=== PATIENT | female | born 1940 | race Caucasian/White ===

== ENCOUNTER 2019-01-16 21:49 | Outpatient (REF) | payer MEDICARE, SELFPAY ==
[2019-01-16 21:54] LABS: HCT 43.8 % (36.0-46.0); HGB 14.4 g/dL (12.0-15.5); Mean Corp. HGB Concentration 32.9 g/dL (32.0-36.0); Mean Corpuscular Hemoglobin 32.4 pg (27.0-33.0); Mean Corpuscular Volume 98.4 fL (80-95); Platelet Count 219 x1000/uL (130-400); RBC 4.45 m/cumm (4.00-5.20); RBC Distribution Width 12.8 % (11.7-14.6)
[2019-01-17 12:30] LABS: ALT 17 U/L (14-59); Anion Gap 8.3 mmol/L (3-11); BUN 24 mg/dL (7-18); CO2 25.7 mmol/L (21.0-32.0); CREATININE 1.19 mg/dL (0.55-1.02); Calcium 8.9 mg/dL (8.5-10.1); Chloride 105 mmol/L (98-107); Glucose 100 mg/dL (70-100); LDL CHOLESTEROL 111 mg/dL (<100); Potassium 4.5 mmol/L (3.5-5.1); Sodium 139 mmol/L (136-145)
== END 2019-01-16 22:09 ==
LOC: NCHCN 21:49
PROVIDERS: PCP Internal Medicine; Visit Provider Internal Medicine
DX: I48.0 Paroxysmal atrial fibrillation (principal); I10 Essential (primary) hypertension; Z98.61 Coronary angioplasty status
CPT/HCPCS: 80048; 83721; 85027; 84460

== ENCOUNTER 2020-01-23 14:42 | Outpatient (REF) | payer MEDICARE, SELFPAY ==
[2020-01-23 19:51] LABS: HGB 14.1 g/dL (11.2-15.7); MCH 32.2 pg (27.0-33.0); MCV 100.5 fL (80-95); MPV 11.1 fL (8.0-11.0); Platelet Count 182 10^3/uL (130-400); RBC 4.38 10^6/uL (3.93-5.22); RDW 12.5 % (11.7-14.6); RDW-SD 46.7 fL; WBC 6.16 10^3/uL (4.4-10.8)
[2020-01-23 20:30] LABS: ALT 19 U/L (14-59); Albumin 3.9 g/dL (3.4-5.0); Anion Gap 7.5 mmol/L (3-11); BUN 27 mg/dL (7-18); CO2 26.5 mmol/L (21.0-32.0); CREATININE 1.27 mg/dL (0.55-1.02); Calcium 9.2 mg/dL (8.5-10.1); Chloride 101 mmol/L (98-107); Glucose 104 mg/dL (74-106); LDL CHOLESTEROL 114 mg/dL (<100); Potassium 4.9 mmol/L (3.5-5.1); Sodium 135 mmol/L (136-145); TSH 1.13 uIU/mL (0.36-3.74)
[2020-01-23 21:00] LABS: Creatine Kinase 118 U/L (26-192); NT-proBNP 1450 pg/mL (<300); PHOSPHORUS 3.8 mg/dL (2.6-4.7)
== END 2020-01-23 15:02 ==
LOC: NCHCN 14:42
PROVIDERS: PCP Internal Medicine; Visit Provider Internal Medicine
DX: I69.959 Hemiplegia and hemiparesis following unspecified cerebrovascular disease affecting unspecified side (principal); Z79.01 Long term (current) use of anticoagulants; I10 Essential (primary) hypertension; I25.10 Atherosclerotic heart disease of native coronary artery without angina pectoris; Z98.61 Coronary angioplasty status; E04.2 Nontoxic multinodular goiter; I50.9 Heart failure, unspecified
CPT/HCPCS: 80069; 82550; 83721; 85027; 83880; 84443; 84460

== ENCOUNTER 2021-09-02 19:54 | Outpatient (REF) | payer MEDICARE, SELFPAY ==
[2021-09-02 19:29] LABS: HCT 43.2 % (36.0-46.0); HGB 13.7 g/dL (11.2-15.7); MCH 32.7 pg (27.0-33.0); MCHC 31.7 % (32.0-36.0); MCV 103.1 fL (80-95); MPV 10.9 fL (8.0-11.0); Platelet Count 164 10^3/uL (130-400); RBC 4.19 10^6/uL (3.93-5.22); RDW 12.2 % (11.7-14.6); WBC 5.38 10^3/uL (4.4-10.8)
--- OUTSIDE RECORDS SUMMARY | 2021-09-02 19:58 | XMS_ITS ---
:1940 Author Care Team Providers Name Role Phone CLIVE MOLINA MD Primary Care Provider [phone] PERRY ERICKSON MD Color Straining Bag Washer [phone] Allergies Code Code System Name Reaction Severity Status Onset 703 RxNorm Amiodarone ? ? Active ? 2551 RxNorm Ciprofloxacin Hives ? Active ? Notes: No seafood allergy. No co ntrast allergy. Medications Name Status Start Date Stop Date ? ? acetaminophen 300 mg-codeine 30 mg Completed ? 10/14/2019 tablet amoxicillin 500 mg capsule Completed ? 10/13 aspirin 81 mg tablet,delayed release Active ? Not available Take 1 tablet every day by oral route in the morning. bupropion HCl SR 150 mg tablet,12 hr Active ? Not available sustained-release carvedilol 12.5 mg tablet Active ? Not av ailable chlorhexidine gluconate 0.12 % mouthwash Completed ? 08/03/2020 TAKE 15ML BY MOUTH TWO TIMES A DAY FOR 7 DAYS Co Q-10 Active ? Not available Take 1 tablet in the am fluticasone propionate 50 mcg/actuation Active ? Not available nasal spray,suspension fosinopril 40 mg tablet Active ? Not avai lable hydrocodone 5 mg-acetaminophen 325 mg tablet Active ? Not available TAKE ONE TABLET BY MOUTH EVERY 6 HOURS NEEDED ketorolac 0.5 % eye drops Completed ? 2019 neomycin 1.75 mg-polymyxin 10,000 Completed ? 10/14/2019 unit-gramicidin 0.025mg/mL eye drops Nitrostat 0.4 mg sublingual tablet Active ? Not available Place 1 tablet by sublingual route as needed. prednisolone acetate 1 % eye Completed ? 05/2019 drops,suspension rosuvastatin 40 mg tablet Active ? Not av ailable spironolactone 50 mg tablet Active ? Not available warfarin 2.5 mg tablet Completed ? 0 Xarelto 15 mg tablet Active ? Not availab le Problems Name Status Onset Date Source ? Hyperlipidemia Active 07/22/2019 ? Coronary Arteriosclerosis Active 07/22/2019 ? Mitral Valve Regurgitation Active 07/22/2019 ? Atrial Fibrillation Active 07/22/2019 ? Tachycardia-bradycardia Active 07/22/2019 ? Cerebrovascular Accident Active 07/22/2019 ? Diverticulitis Active 07/22/2019 ? Cardiac Pacemaker in Situ Active 07/23/2019 ? Dysthymia Active ? History Obstructive Sleep Apnea Syndrome Active ? History Hypertensive Disorder Active ? History Myocardial Infarction Active ? History Procedures Date Name Performed by ? 05/15/2015 Cardiac Pacemaker Procedure Information not available Notes: Replaced prior (ol rigoberto) pacemaker at [facility] [place], pt sched. for pacemaker check-up at [facility] [place] on 09/18/18. 05/15/2008 Cholecystectomy Information not avai lable 05/15/2008 Rhinoplasty Information not avai lable 05/15/2005 Colonoscopy Information not avai lable 05/15/1988 Total Hysterectomy Information not avai lable 05/15/1967 Insertion of Bilateral Breast Informatio n not available Prostheses ? Cardiac Catheterization Information not available Notes: 2003 @ [facility] [place] 05/18/2020 US, Echocardiogram, Transthoracic, [facility] Radiology (Internal) Complete [address], [place] [id number] (Work Place) Results Lab Results Date Name Specimen Result Interpretation Description Value Range Status Address ? 07/31/2020 CBC W/ Auto BLD ? Wbc 7.9 5.0-10.0 Final [place] Diff 10*3/uL 10*3/uL [facility] (Internal) : [address] ? ? BLD ? Rbc 4.32 4.10-5.30 Final [place] 10*6/uL 10*6/uL [facility] (Internal) : [address] ? ? BLD ? Hgb 14.2 12.0-16.0 Final [place] g/dL g/dL [facility] (Internal) : [address] ? ? BLD ? Hct 45.0 % 37.0-47.0 Final [place] % [facility] (Internal) : [address] ? ? BLD High Mcv 104.2 fL 80.0-96.0 Final [facility] (Internal) : [address], [place] ? ? BLD High Mch 32.9 pg 26.0-32.0 Final [place] pg [facility] (Internal) : [address] ? ? BLD ? Mchc 31.6 31.0-35.0 Final [place] g/dL g/dL [facility] (Internal) : [address] ? ? BLD ? Rdw 12.7 % 11.5-14.5 Final [facility] L ab (Internal) : [address] ? ? BLD ? Plt 178 130-450 Final [place] 10*3/uL 10*3/uL [facility] (Internal) : [address] ? ? BLD ? Anc 5.46 ? Final [place] 10*3/uL [facility] (Internal) : [address] ? ? BLD ? Nlr 3.16 0.00-3.20 Final [facility] L ab (Internal) : [address] ? ? BLD ? Neutro 69.2 % 40.0-75.0 Final [facility] L ab (Internal) : [address] ? ? BLD ? Lymph 22.0 % 20.0-50.0 Final [facility] L ab (Internal) : [address] ? ? BLD ? [place] 6.2 % 2.0-10.0 Final [facility] L ab (Internal) : [address] ? ? BLD ? Eos 1.4 % 1.0-6.0 % Final [facility] L ab (Internal) : [address] ? ? BLD ? Baso 0.8 % 0.0-1.0 % Final [facility] L ab (Internal) : [address] ? ? BLD ? Ig 0.4 % 0.0-0.9 % Final [facility] L [facility] (Internal) : [address] t 07/31/2020 BMP, Serum or S High g/r 110 74-106 Final [place] Plasma mg/dL mg/dL [facility] L [facility] (Internal) : [address] ? ? S High Bun 22 mg/dL 7-17 Final [place] mg/dL [facility] L ab (Internal) : [address] t ? ? S High Crea 1.20 0.52-1.04 Final [place] mg/dL mg/dL [facility] L ab (Internal) : [address] t ? ? S ? Ca 9.5 8.4-10.2 Final [place] mg/dL mg/dL [facility] (Internal) : [address] t ? ? S ? Na 139 137-145 Final [place] mmol/L mmol/L [facility] L ab (Internal) : [address] t ? ? S ? K 4.9 3.5-5.1 Final [place] mmol/L mmol/L [facility] L ab (Internal) : [address] t ? ? S ? Cl 103 98-107 Final [place] mmol/L mmol/L [facility] L [facility] (Internal) : [address] t ? ? S ? Tco2 25.0 22.0-30.0 Final [place] mmol/L mmol/L [facility] L [facility] (Internal) : [address] 07/31/2020 RBC BLD ? Macro small ? Final [place] Morphology, Count ry Blood Hospital L ab (Internal) : [address] 07/31/2020 BNP (B-type S High Nt-probnp 1480 0-450 Sherron l [place] Natriuretic pg/mL pg/mL Count ry Peptide), Hospita l Lab Prohormone (Inter nal): N-terminal, [address], [place] Immunoassay, Blood 07/31/2020 TSH, Serum or S ? Tsh 1.23 0.47-4.68 Fin al [place] Plasma u[IU]/mL u[IU]/mL Countr Hospital L ab (Internal) : [address] 10/17/2019 EKG Done by ? No ? ? ? N orth Lab observation Count ry recorded. Hospita l Lab (Internal) : [address] 09/18/2017 Venipuncture BLD ? Venpn* ? ? Final [facility] L ab (Internal) : [address] 09/18/2017 Prothrombin BLD High Pt 35.7 S 9.1-11.7 Final [facility] L ab (Internal) : [address] t ? ? BLD ? Inr 3.5 ? Final [facility] ab (Internal) : [address] t 08/16/2017 Venipuncture BLD ? Venpn* ? ? Final [facility] L ab (Internal) : [address] t 08/16/2017 Prothrombin BLD High Pt 26.6 S 9.1-11.7 Final [facility] L ab (Internal) : [address] t ? ? BLD ? Inr 2.6 ? Final [facility] ab (Internal) : [address] t 07/18/2017 Venipuncture BLD ? Venpn* ? ? Final [facility] L ab (Internal) : [address] t 07/18/2017 Prothrombin BLD High Pt 26.7 S 9.1-11.7 Final [facility] L ab (Internal) : [address] t ? ? BLD ? Inr 2.6 ? Final [facility] L ab (Internal) : [address] t 07/03/2017 Venipuncture BLD ? Venpn* ? ? Final [facility] ab (Internal) : [address] t 07/03/2017 Prothrombin BLD High Pt 18.9 S 9.1-11.7 Final [facility] L ab (Internal) : [address] t ? ? BLD ? Inr 1.8 ? Final [facility] L ab (Internal) : [address] t 06/26/2017 Venipuncture BLD ? Venpn* ? ? Final [facility] L ab (Internal) : [address] t 06/26/2017 Prothrombin BLD High Pt 19.9 S 9.1-11.7 Final [facility] L ab (Internal) : [address] t ? ? BLD ? Inr 1.9 ? Final [facility] ab (Internal) : [address] t 06/19/2017 Venipuncture BLD ? Venpn* ? ? Final [facility] L ab (Internal) : [address] t 06/19/2017 Prothrombin BLD High Pt 43.9 S 9.1-11.7 Final [facility] L ab (Internal) : [address] t ? ? BLD CRITICAL Inr 4.3 ? Final [facility]Internal[facility] [address] [facility] 05/24/2017 Venipuncture BLD ? Venpn* ? ? Final [facility] ab (Internal) : [address] 05/24/2017 Prothrombin BLD High Pt 25.6 S 9.1-11.7 Final [facility] L ab (Internal) : [address] t ? ? BLD ? Inr 2.5 ? Final [facility] ab (Internal) : [address] t 04/19/2017 Venipuncture BLD ? Venpn* ? ? Final [facility] L ab (Internal) : [address] t 04/19/2017 Prothrombin BLD High Pt 27.6 S 9.1-11.7 Final [facility] L ab (Internal) : [address] t ? ? BLD ? Inr 2.7 ? Final [facility] ab (Internal) : [address] t 03/27/2017 Venipuncture BLD ? Venpn* ? ? Final [facility] L ab (Internal) : [address] t 03/27/2017 Prothrombin BLD High Pt 25.1 S 9.1-11.7 Final [facility] L ab (Internal) : [address] t ? ? BLD ? Inr 2.5 ? Final [facility] ab (Internal) : [address] t 03/13/2017 Venipuncture BLD ? Venpn* ? ? Final [facility] ab (Internal) : [address] t 03/13/2017 Prothrombin BLD High Pt 16.7 S 9.1-11.7 Final [facility] ab (Internal) : [address] t ? ? BLD ? Inr 1.6 ? Final [facility] ab (Internal) : [address] [facility] 03/10/2017 Venipuncture BLD ? Venpn* ? ? Final [facility] L ab (Internal) : [address] [facility] t 03/10/2017 Prothrombin BLD High Pt 35.1 S 9.1-11.7 Final [facility] L ab (Internal) : [address] t ? ? BLD ? Inr 3.5 ? Final [facility] L ab (Internal) : [address], [facility] t 02/08/2017 Venipuncture BLD ? Venpn* ? ? Final [facility] L ab (Internal) : [address] [facility] t 02/08/2017 Prothrombin BLD High Pt 23.8 S 9.1-11.7 Final [facility] L ab (Internal) : [address] t ? ? BLD ? Inr 2.3 ? Final [facility] (Internal) : [address] [facility] 01/03/2017 Venipuncture BLD ? Venpn* ? ? Final [facility] L ab (Internal) : [address] [facility] t 01/03/2017 Prothrombin BLD High Pt 27.8 S 9.1-11.7 Final [facility] L ab (Internal) : [address] t ? ? BLD ? Inr 2.7 ? Final [facility] L ab (Internal) : [address] t 11/18/2016 Venipuncture BLD ? Venpn* ? ? Final [facility] L ab (Internal) : [address] t 11/18/2016 Prothrombin BLD High Pt 16.7 S 9.1-11.7 Final [facility] L ab (Internal) : [address] t ? ? BLD ? Inr 1.6 ? Final [facility]Internal[facility] [address] [facility] Venipuncture BLD ? Venpn* ? ? Final [facility] L ab (Internal) : [address] t 10/12/2016 Prothrombin BLD High Pt 25.2 S 9.1-11.7 Final [facility] L ab (Internal) : [address] ? ? BLD ? Inr 2.5 ? Final [facility] L ab (Internal) : [address] t 07/15/2016 Venipuncture BLD ? Venpn* ? ? Final [facility] L ab (Internal) : [address] 07/15/2016 Prothrombin BLD High Pt 19.9 S 9.1-11.7 Final [facility] L ab (Internal) : [address], [place] ? ? BLD ? Inr 1.9 ? Final [facility] L ab (Internal) : [address] 07/05/2016 Venipuncture BLD ? Venpn* ? ? Final [facility] ab (Internal) : [address], [place] t 07/05/2016 Prothrombin BLD High Pt 18.0 S 9.1-11.7 Final [facility] ab (Internal) : [address] ? ? BLD ? Inr 1.8 ? Final [facility] ab (Internal) : [address] Past Encounters 02/03/2021 Hypertensive Disorder Perry Erickson MD: [address] [place] [address], Ph. 08/03/2020 Perry Erickson MD: [address] [place] [address], Ph. 05/18/2020 Fatigue Perry Erickson MD: [address] [place] [address], Ph. Social History Tobacco Smoking Status Former Smoker Notes: 1 PPD q uit 1985 Vaccine List Vaccine Type influenza, seasonal, injectable, preserv ative free 04/30/2009?0.5 mL 02/15/2010?0.5 mL 02/26/2013?0.5 mL 02/05/2019?0.5 mL Plan of Care Reminders Provider Appointments None ? ? recorded. Lab None ? ? recorded. Referral None ? ? recorded. Procedures None ? ? recorded. Surgeries None ? ? recorded. Imaging None ? ? recorded. Vitals 02/03/2021 11:30AM Follow Up 30 Weight Blood Pressure 75 kg 100/68 mm[Hg] 08/03/2020 02:15PM Follow Up 30 Weight Blood Pressure 76.05 kg 124/67 mm[Hg] 05/18/2020 01:00PM Follow Up 30 Weight Blood Pressure 71.05 kg 100/56 mm[Hg] 04/03/2012 Blood Pressure 120/80 mm[Hg] 04/03/2012 Height Weight 162.56 cm 88.45 kg
[2021-09-02 20:07] LABS: Anion Gap 6.4 mmol/L (3-11); BUN 20 mg/dL (7-18); CO2 29.6 mmol/L (21.0-32.0); CREATININE 1.2 mg/dL (0.55-1.02); Calcium 9.3 mg/dL (8.5-10.1); Chloride 103 mmol/L (98-107); Estimated GFR 43.34 (mL/min/1.73m2); Glucose 104 mg/dL (74-106); NT-proBNP 1568 pg/mL (<300); Potassium 4.6 mmol/L (3.5-5.1); Sodium 139 mmol/L (136-145)
[2021-09-02 21:20] LABS: TSH 1.33 uIU/mL (0.36-3.74)
== END 2021-09-02 19:55 | disposition home or self-care (01) ==
LOC: NCHCN 19:54
PROVIDERS: PCP Internal Medicine; Visit Provider Internal Medicine
DX: R06.09 Other forms of dyspnea (principal)
CPT/HCPCS: 80048; 85027; 83880; 84443

== ENCOUNTER 2022-07-20 18:06 | Outpatient (REF) | payer MEDICARE, SELFPAY ==
[2022-07-20 20:01] LABS: HCT 40.5 % (36.0-46.0); HGB 13.5 g/dL (11.2-15.7); MCH 33.7 pg (27.0-33.0); MCHC 33.3 % (32.0-36.0); MCV 101 fL (80-95); MPV 11.1 fL (8.0-11.0); Platelet Count 152 10^3/uL (130-400); RBC 4.01 10^6/uL (3.93-5.22); RDW 12.3 % (11.7-14.6); WBC 5.99 10^3/uL (4.4-10.8)
[2022-07-20 20:24] LABS: Anion Gap 7.8 mmol/L (3-11); BUN 21 mg/dL (7-18); C-Reactive Protein 0.09 mg/dL (0.0-0.3); CO2 28.2 mmol/L (21.0-32.0); CREATININE 1.3 mg/dL (0.55-1.02); Calcium 10.4 mg/dL (8.5-10.1); Chloride 105 mmol/L (98-107); Creatine Kinase 84 U/L (26-192); Estimated GFR 41.57 (mL/min/1.73m2); Glucose 103 mg/dL (74-106); NT-proBNP 1207 pg/mL (<300); Potassium 4.8 mmol/L (3.5-5.1); Sodium 141 mmol/L (136-145); TSH 0.94 uIU/mL (0.36-3.74)
[2022-07-20 21:12] LABS: Calculated LDL 94 mg/dL (<100); Cholesterol 189 mg/dL (<200); HDL Cholesterol 83 mg/dL (40-60); Triglyceride 62 mg/dL (<150); Vitamin B12 335 pg/mL (193-986)
== END 2022-07-20 18:07 | disposition home or self-care (01) ==
LOC: NCHCN 18:06
PROVIDERS: PCP Internal Medicine; Visit Provider Internal Medicine
DX: I10 Essential (primary) hypertension (principal); E78.5 Hyperlipidemia, unspecified; R53.83 Other fatigue; M81.0 Age-related osteoporosis without current pathological fracture; M60.9 Myositis, unspecified
CPT/HCPCS: 80048; 80061; 82550; 85027; 82607; 83880; 84443; 86140

== ENCOUNTER 2022-11-17 15:47 | Outpatient (REF) | payer MEDICARE, SELFPAY ==
[2022-11-17 20:08] LABS: Abs Immature Grans 0.01 10^3/uL (0.0-0.06); Absolute Basophil Count 0.05 10^3/uL (0.0-0.2); Absolute Lymphocyte Count 1.78 10^3/uL (1.2-3.4); Absolute Monocyte Count 0.38 10^3/uL (0.1-0.8); Absolute Neutrophil Count 3.25 10^3/uL (1.2-6.7); Basophils % 0.9; Eosinophils % 1.8; HGB 13.9 g/dL (11.2-15.7); Immature Grans % 0.2; MCH 33.4 pg (27.0-33.0); MCHC 33.1 % (32.0-36.0); MCV 101 fL (80-95); MPV 11.5 fL (8.0-11.0); Monocytes % 6.8; Neutrophils % 58.3; Platelet Count 147 10^3/uL (130-400); RBC 4.16 10^6/uL (3.93-5.22); RDW 12.4 % (11.7-14.6); RDW-SD 46.6 fL; WBC 5.57 10^3/uL (4.4-10.8)
[2022-11-17 20:23] LABS: Albumin 3.9 g/dL (3.4-5.0); Anion Gap 7.1 mmol/L (3-11); BUN 28 mg/dL (7-18); CO2 28.9 mmol/L (21.0-32.0); CREATININE 1.8 mg/dL (0.55-1.02); Calcium 9.8 mg/dL (8.5-10.1); Chloride 104 mmol/L (98-107); Estimated GFR 28.13 (mL/min/1.73m2); Glucose 112 mg/dL (74-106); PHOSPHORUS 3.8 mg/dL (2.6-4.7); Potassium 5.9 mmol/L (3.5-5.1); Sodium 140 mmol/L (136-145)
== END 2022-11-17 15:48 | disposition home or self-care (01) ==
LOC: NCHCN 15:47
PROVIDERS: PCP Internal Medicine; Visit Provider Internal Medicine
DX: Z79.01 Long term (current) use of anticoagulants (principal); I50.9 Heart failure, unspecified
CPT/HCPCS: 80069; 85025

== ENCOUNTER → 2023-01-11 10:46 | Outpatient (BNVA) | payer MEDICARE, SELFPAY | PROVIDERS: PCP Internal Medicine; Referring Provider Internal Medicine; Visit Provider Psychiatry & Neurology Neurology | DX: F44.4 Conversion disorder with motor symptom or deficit (principal); I10 Essential (primary) hypertension; J44.9 Chronic obstructive pulmonary disease, unspecified | CPT/HCPCS: 99205 ==

== ENCOUNTER → 2023-03-13 10:10 | Outpatient (BNVA) | payer MEDICARE, SELFPAY | PROVIDERS: PCP Internal Medicine; Referring Provider Internal Medicine; Visit Provider Psychiatry & Neurology Neurology | DX: I10 Essential (primary) hypertension (principal); J44.9 Chronic obstructive pulmonary disease, unspecified; F44.4 Conversion disorder with motor symptom or deficit | CPT/HCPCS: 99213 ==

== ENCOUNTER 2023-08-07 18:17 | Outpatient (REF) | payer MEDICARE, SELFPAY ==
[2023-08-07 19:03] LABS: HCT 43.6 % (36.0-46.0); HGB 14.2 g/dL (11.2-15.7); MCH 33.2 pg (27.0-33.0); MCHC 32.6 % (32.0-36.0); MCV 102 fL (80-95); MPV 10.6 fL (8.0-11.0); Platelet Count 159 10^3/uL (130-400); RBC 4.28 10^6/uL (3.93-5.22); RDW 12.4 % (11.7-14.6); RDW-SD 46.7 fL; WBC 5.88 10^3/uL (4.4-10.8)
[2023-08-07 19:37] LABS: ALT 17 U/L (14-59); Anion Gap 6.8 mmol/L (3-11); BUN 35 mg/dL (7-18); CO2 28.2 mmol/L (21.0-32.0); CREATININE 1.4 mg/dL (0.55-1.02); Calcium 9.7 mg/dL (8.5-10.1); Chloride 102 mmol/L (98-107); Creatine Kinase 59 U/L (26-192); Glucose 101 mg/dL (74-106); Potassium 5.3 mmol/L (3.5-5.1); Sodium 137 mmol/L (136-145); TSH 1.45 uIU/Ml (0.36-3.74)
[2023-08-07 19:55] LABS: Calculated LDL 113 mg/dL (<100); Cholesterol 201 mg/dL (<200); HDL Cholesterol 72 mg/dL (40-60); Triglyceride 80 mg/dL (<150)
== END 2023-08-07 18:18 | disposition home or self-care (01) ==
LOC: NCHCN 18:17
PROVIDERS: PCP Internal Medicine; Visit Provider Internal Medicine
DX: I10 Essential (primary) hypertension (principal); I50.9 Heart failure, unspecified; E04.2 Nontoxic multinodular goiter; Z79.01 Long term (current) use of anticoagulants
CPT/HCPCS: 80048; 80061; 82550; 85027; 84443; 84460

== ENCOUNTER → 2023-09-11 12:42 | Outpatient (BNVA) | payer MEDICARE, SELFPAY | PROVIDERS: PCP Internal Medicine; Referring Provider Internal Medicine; Visit Provider Psychiatry & Neurology Neurology | DX: F44.4 Conversion disorder with motor symptom or deficit (principal) | CPT/HCPCS: 99213 ==

== ENCOUNTER 2023-11-15 13:54 | Outpatient (REF) | payer MEDICARE, SELFPAY ==
--- NOTE | 2023-11-15 13:30 | SKI_PTH ---
PATIENT: Rubi Moore LOC: [facility] U#:[id number] AGE/SX: 83/F ROOM: RE11/15/[address]: Blake Marinelli : 1940 BED: DIS: 11/15/2023 SPEC #: [id number] RECD: 11/20/23 13:03 STATUS: JOLANTA HORN #: [id number] GODWIN: 11/15/23 13:[address]: Blake Marinelli DEPT: Surgical Specimen RECD BY: Zulay Vale Tissues: 1 - SKIN BIOPSY(SHAVE/PUNCH) Procedures: SKIN LEVEL 4 Comments: [id number]
[2023-11-15 21:14] LABS: Anion Gap 7.8 mmol/L (3-11); BUN 20 mg/dL (7-18); CO2 28.2 mmol/L (21.0-32.0); CREATININE 1.2 mg/dL (0.55-1.02); Calcium 9.5 mg/dL (8.5-10.1); Chloride 102 mmol/L (98-107); Estimated GFR 45.48 (mL/min/1.73m2); Glucose 107 mg/dL (74-106); Sodium 138 mmol/L (136-145)
== END 2023-11-15 13:55 | disposition home or self-care (01) ==
LOC: LBN 13:54
PROVIDERS: PCP Internal Medicine; Visit Provider Internal Medicine
DX: D04.5 Carcinoma in situ of skin of trunk (principal); E87.5 Hyperkalemia
CPT/HCPCS: 80048; 88305

== ENCOUNTER 2025-01-09 17:17 | Outpatient (REF) | payer MEDICARE, SELFPAY ==
[2025-01-09 19:33] LABS: ALT 17 U/L (14-59); Anion Gap 7.8 mmol/L (3-11); BUN 22 mg/dL (7-18); CO2 28.2 mmol/L (21.0-32.0); Calcium 9.4 mg/dL (8.5-10.1); Calculated LDL 111 mg/dL (<100); Chloride 103 mmol/L (98-107); Cholesterol 199 mg/dL (<200); Estimated GFR 34.58 (mL/min/1.73m2); Glucose 104 mg/dL (74-106); HDL Cholesterol 73 mg/dL (>or=50); Potassium 5.3 mmol/L (3.5-5.1); Sodium 139 mmol/L (136-145); TSH 1.50 uIU/mL (0.36-3.74); Triglyceride 78 mg/dL (<150)
[2025-01-09 20:02] LABS: Creatine Kinase 73 U/L (26-192); NT-proBNP 897 pg/mL (<300)
== END 2025-01-09 17:18 | disposition home or self-care (01) ==
LOC: NCHCN 17:17
PROVIDERS: PCP Internal Medicine; Visit Provider Internal Medicine
DX: I50.9 Heart failure, unspecified (principal); E04.2 Nontoxic multinodular goiter
CPT/HCPCS: 80048; 80061; 82550; 83880; 84443; 84460

== ENCOUNTER 2025-02-25 18:11 | Outpatient (REF) | payer MEDICARE, SELFPAY ==
[2025-02-25 20:26] LABS: Anion Gap 8.9 mmol/L (3-11); BUN 22 mg/dL (7-18); CO2 30.1 mmol/L (21.0-32.0); Calcium 9.3 mg/dL (8.5-10.1); Chloride 103 mmol/L (98-107); Estimated GFR 37.56 (mL/min/1.73m2); Glucose 106 mg/dL (74-106); Potassium 4.1 mmol/L (3.5-5.1); Sodium 142 mmol/L (136-145)
== END 2025-02-25 18:12 | disposition home or self-care (01) ==
LOC: NCHCN 18:11
PROVIDERS: PCP Internal Medicine; Visit Provider Nurse Practitioner Family
DX: I50.9 Heart failure, unspecified (principal)
CPT/HCPCS: 80048